=== PATIENT | male | born 1950 | race Caucasian/White ===

== ENCOUNTER 2021-02-01 18:52 | Emergency (ER) | payer OTHER, MEDICARE ==
[2021-02-01 19:31] VITALS: BP 178/84; PULSE 52; TEMP 97.9; BMI 40.3
== END 2021-02-01 19:36 | disposition home or self-care (01) ==
LOC: FER 18:52
DX: S61.412A Laceration without foreign body of left hand, initial encounter (principal); W26.0XXA Contact with knife, initial encounter; Y92.9 Unspecified place or not applicable
CPT/HCPCS: 99283-25

== ENCOUNTER 2023-09-15 08:14 | Day surgery (SDC) | payer OTHER, MEDICARE ==
[2023-09-11 12:15] VITALS: BMI 39.6
[2023-09-15 08:32] VITALS: RESP 18
[2023-09-15 10:11] VITALS: TEMP 97.7
[2023-09-15 10:26] VITALS: BP 140/74; PULSE 61
== END 2023-09-15 10:27 | disposition home or self-care (01) ==
LOC: FASU-ENDO 08:14
PROVIDERS: ATTEND Internal Medicine Gastroenterology
PROC: 0DBL8ZX Excision of Transverse Colon, Via Natural or Artificial Opening Endoscopic, Diagnostic (ICD-10-PCS; principal; 2023-09-15 09:40)
DX: Z12.11 Encounter for screening for malignant neoplasm of colon (principal); D12.3 Benign neoplasm of transverse colon; K57.30 Diverticulosis of large intestine without perforation or abscess without bleeding
CPT/HCPCS: 82962; 88305-TC